=== PATIENT | male | born 1950 | race Caucasian/White ===

== ENCOUNTER 2018-07-25 07:55 | Day surgery (SDC) | payer MEDICARE, SELFPAY ==
--- NOTE | 2018-07-19 10:27 | EKG12_ITS ---
Test Reason : PRE-OP Blood Pressure : / mmHG Vent. Rate : 063 BPM Atrial Rate : 063 BPM P-R Int : 194 ms QRS Dur : 094 ms QT Int : 410 ms P-R-T Axes : 033 051 064 degrees QTc Int : 419 ms Sinus rhythm with Premature atrial complexes Septal infarct , age undetermined Abnormal ECG Confirmed by VIDA SHARMA, ADRIEN ([id number]), web editor MIRANDA SHOEMAKER ([id number]) on 07/20/2018 3:19:58 PM Referred By: Lonny Kuhn Confirmed By:ADRIEN MCPHERSON MD
[2018-07-19 10:58] LABS: Hematocrit 49.3 % (40-54); Hemoglobin 16.8 g/dl (13.0-16.5); Mean Corp Hgb Conc 34.1 g/gl (32-36); Mean Corpuscular Hgb 31.1 pg (27.0-32.0); Mean Corpuscular Volume 91.3 fL (80-94); Mean Platelet Vol. 8.8 fl (6.2-12.0); Platelet Count 174 K/mm3 (150-450); RBC Distribution Width CV 13.3 % (11.6-14.6); RBC Distribution Width SD 44.3 fl (35.1-43.9); White Blood Count 7.8 K/mm3 (4.4-11.0)
[2018-07-19 11:00] LABS: Scan Indicated on CBC? Y/N NO
[2018-07-19 11:23] LABS: Anion Gap 7 (5-15); BUN 23 mg/dL (7-18); Calcium,Total 8.7 mg/dL (8.5-10.1); Chloride 103 mmol/L (98-107); Creatinine, Serum 1.15 mg/dL (0.70-1.30); EST Glomerular Filtration Rate 67 mL/min (>60); Est Glom Filt Rate - Afr Amer 81 mL/min (>60); Glucose 106 mg/dL (74-106); Potassium 3.8 mmol/L (3.5-5.1); Sodium Level 137 mmol/L (136-145)
--- NOTE | 2018-07-25 | LES_PTH ---
PATIENT: MATEUS COLEMAN [place] [facility] [place][id number] AGE/SX: 68/M ROOM: RE07/25/[address]: Dr. Lonny Kuhn MD : 1950 BED: DIS: 07/25/2018 SPEC #: [id number] RECD: 07/25/18 13:04 STATUS: CHALINO MILAD #: [id number] RADHA: 07/25/18 00:[address]: Lonny Kuhn DEPT: SURGICAL PATHOLOGY RECD BY: Karen Rubio ENTERED: 07/25/18 13:58 SP TYPE: Lesion OTHR DR: Dr. Sebas Marion, DO Tissues: A - Skin of face, NOS B - Skin of forehead Procedures: Frozen Section (charge) Frozen Section Add'l ([facility]) Surgery Specimen Level IV Frozen (no charge) HEADER OPERATION: Excision scalp neoplasm x2, frozen section PRE-OP DIAGNOSIS: Lesions forehead x2 TISSUE SUBMITTED: A - Lesion left temporal FS, short suture - superior, long - medial, B - Pigmented lesion right forehead FS, short suture - superior, long - medial FROZEN SECTION DIAGNOSIS A. Lesion left temporal, biopsy: Squamous cell carcinoma in situ, completely excised. B. Right forehead, pigmented lesion, biopsy: Seborrheic keratosis. Negative for malignancy. SJ:pelon 07/25/18 MICROSCOPIC DIAGNOSIS A. Lesion left temporal, biopsy: Squamous cell carcinoma in situ, completely excised. B. Right forehead, pigmented lesion, biopsy: Seborrheic keratosis. Negative for malignancy. ANOOP:pelon 07/26/18 COMMENT Case has been reviewed in consultation with Dr. Seo who concurs with the above diagnosis. IDC:AM MICROSCOPIC DESCRIPTION Slides are reviewed. GROSS DESCRIPTION A - Received fresh for frozen section diagnosis labeled with the patient's name is a specimen designated lesion left temporal. The specimen consists of a piece of soler-white skin ellipse measuring 2 x 1.5 x 0.3 cm. The specimen is oriented as short suture - superior, long suture - lateral. The specimen is inked as follows: medial tip - yellow, lateral tip - green, superior - black, inferior - blue. The specimen is serially sectioned and submitted for frozen section diagnosis in two cassettes as follow: 1 - tip, 2 - rest of the specimen. B - Received fresh for frozen section diagnosis labeled with the patient's name is a specimen designated right forehead pigmented lesion. The specimen consists of a piece of soler-white skin ellipse measuring 1.4 x 0.7 x 0.2 cm. The specimen is oriented as short suture - superior, long suture - medial. The specimen is inked as follows: medial tip - yellow, lateral tip - green, superior - black, inferior - blue. The specimen is serially sectioned and submitted entirely for frozen section diagnosis in one cassette. / SJ:rg 07/25/18 TC:0 CPT: 99454 x2, 65631 x2, 01307
[2018-07-25 09:02] VITALS: BP 137/71; PULSE 61; RESP 16; TEMP 36.8; O2SAT 92; BMI 36.7
--- NOTE | 2018-07-25 12:35 | DCINST_ITS ---
You will use the following diet at home:: Regular Your food should be the consistency of: Regular Discharge Activity: Return to Normal Activity May shower in (days): 2 Additional Activity Instructions:: Remove dressing tomorrow morning. Apply antibiotic ointment twice a day on the stitches. May shower on Wednesday. Allergies/Adverse Reactions: Allergies No Known Allergies Allergy (Verified 07/18/18 14:38) Medications to take at Discharge Aspirin [Aspirin, Baby] 81 mg PO DAILY@0800 01/28/17 RX: Multivitamins,Therapeutic [Multivitamin] 1 tablet PO DAILY 01/28/17 traMADol [Ultram (G)] 50 mg PO BID 01/28/17 Pramipexole Di-HCl [Mirapex] 0.75 mg PO TID 03/15/17 Doxepin HCl [Sinequan] 10 mg PO QHS 07/19/18 Acetaminophen [Tylenol Extra Strength] 500 - 1,000 mg PO Q6H 07/25/18 RX: Memantine HCl 10 mg PO DAILY 07/25/18 Spironolact/Hydrochlorothiazid [Aldactazide 25-25 Tablet] 1 each PO DAILY 07/25/18 Primary Care Physician: Sebas Marion DO [Primary Care Provider] - Test Results: Test results from this visit will be discussed in further detail at your follow- up appointment, if applicable.
[2018-07-25] MEDS: Bacitracin 500 UNITS/GM PACKET (13:10)
[2018-07-25 13:31] VITALS: BP 137/71; BP 163/90; PULSE 70; RESP 16; TEMP 36.8; O2SAT 96
[2018-07-25 13:35] VITALS: BP 137/71; BP 162/93; PULSE 70; RESP 16; O2SAT 96
[2018-07-25 13:40] VITALS: BP 137/71; BP 161/86; PULSE 72; RESP 16; O2SAT 97
[2018-07-25 13:45] VITALS: BP 137/71; BP 152/97; PULSE 70; RESP 16; TEMP 36.9; O2SAT 95
[2018-07-25 13:57] VITALS: BP 137/71
--- NOTE | 2018-07-25 16:22 | PCM.OPRPT ---
Report of Operation Date of Procedure: 07/25/18 Pre-Operative Diagnosis: basal cell carninoma left rastafari. hyperpigmented lesion right forehead Post-Operative Diagnosis: Squamous cell carcinoma left rastafari. Seborrheic keratosis right forehead Surgery/Procedure Performed:: Excision squamous cell carcinoma left rastafari with intermediate repair (2.2x1.1) cm. Excision right forehead lesion with intermediate repair (1x.8)cm Type of Anesthesia:: Local MAC Anesthesiologist: Elliot White Specimen's removed: left rastafari. right forehead Estimated Blood Loss (mL): minimal Description of Procedure: The patient was taken to the OR on 07/25/18. He was placed in the supine position on the OR table. He was given local mac anesthesia. The skin was prepped and draped steriley. I injected 1% lidocaine with epinephrine 1:[id number] into the skin surrounding each lesion. After sufficient anesthesia and vasoconstriction, the left rastafari lesion was excised in an ellipse. Sutures were used to orient the specimen and it was sent for frozen section. Hemostasis was achieved with monopolar cautery. I then irrigated the wound. Frozen section came back with clear margins. Next, I undermined the wound anteriorly and posteriorly with scissors. I then used 4-0 Vicryl for the subcutaneous closure and 6-0 nylon for the skin. Next, the right forehead lesion was addressed. It was excised with a 15 blade and sutures were used to orient the specimen. Hemostasis was achieved with monopolar cautery. Frozen section came back as seborrheic keratosis. Next, I undermined the edges with scissors. I irrigated the incision with saline. The subcutaneous layer was closed with interrupted 4-0 Vicryl and the skin was closed with 6-0 Nylon. Bacitracin was applied to both incisions. Pressure dressings were applied to each incision. The patient was then brought to the recovery room in stable condition. Blood loss minimal, replacement none. Sponge, needle and instrument count were correct at the end of the procedure.
--- NOTE | 2018-07-25 16:34 | OP.PCM_ITS ---
Report of Operation Date of Procedure: 07/25/18 Pre-Operative Diagnosis: basal cell carninoma left taoist. hyperpigmented lesion right forehead Post-Operative Diagnosis: Squamous cell carcinoma left taoist. Seborrheic keratosis right forehead Surgery/Procedure Performed:: Excision squamous cell carcinoma left taoist with intermediate repair (2.2x1.1) cm. Excision right forehead lesion with intermediate repair (1x.8)cm Type of Anesthesia:: Local MAC Anesthesiologist: Elliot White Specimen's removed: left taoist. right forehead Estimated Blood Loss (mL): minimal Description of Procedure: The patient was taken to the OR on 07/25/18. He was placed in the supine position on the OR table. He was given local mac anesthesia. The skin was prepped and draped steriley. I injected 1% lidocaine with epinephrine 1:[id number] into the skin surrounding each lesion. After sufficient anesthesia and vasoconstriction, the left taoist lesion was excised in an ellipse. Sutures were used to orient the specimen and it was sent for frozen section. Hemostasis was achieved with monopolar cautery. I then irrigated the wound. Frozen section came back with clear margins. Next, I undermined the wound anteriorly and posteriorly with scissors. I then used 4-0 Vicryl for the subcutaneous closure and 6-0 nylon for the skin. Next, the right forehead lesion was addressed. It was excised with a 15 blade and sutures were used to orient the specimen. Hemostasis was achieved with monopolar cautery. Frozen section came back as seborrheic keratosis. Next, I undermined the edges with scissors. I irrigated the incision with saline. The subcutaneous layer was closed with interrupted 4-0 Vicryl and the skin was closed with 6-0 Nylon. Bacitracin was applied to both incisions. Pressure dressings were applied to each incision. The patient was then brought to the recovery room in stable condition. Blood loss minimal, replacement none. Sponge, needle and instrument count were correct at the end of the procedure.
== END 2018-07-25 14:00 | disposition home or self-care (01) ==
LOC: SDC 07:55 → AC 07:58
PROVIDERS: Family Provider Family Medicine; PCP Family Medicine; Referring Provider Otolaryngology; Visit Provider Otolaryngology
PROC: (CPT 11644; principal; 2018-07-25 09:45)
DX: D04.39 Carcinoma in situ of skin of other parts of face (principal); L82.1 Other seborrheic keratosis; K58.9 Irritable bowel syndrome, unspecified; Z79.899 Other long term (current) drug therapy; Z79.82 Long term (current) use of aspirin; G20 Parkinson's disease
CPT/HCPCS: 00300; 11644; 12052; 36415; 80048; 85027; 88305; 88331; 88332; 93005; J7120

== ENCOUNTER → 2018-08-02 10:31 | Outpatient (CLI) | payer MEDICARE, SELFPAY ==
[2018-08-02 11:49] LABS: PSA,Total - Annual Screen 2.63 ng/mL (0.00-4.00)
== END ==
PROVIDERS: Family Provider Family Medicine; PCP Family Medicine; Referring Provider Urology; Visit Provider Urology
DX: Z12.5 Encounter for screening for malignant neoplasm of prostate (principal)
CPT/HCPCS: 36415; 84153; G0103

== ENCOUNTER 2018-08-10 08:18 | Emergency (ER) | payer MEDICARE, SELFPAY ==
[2018-08-10 08:19] VITALS: BP 166/90; PULSE 74; RESP 18; TEMP 36.6; O2SAT 95; BMI 36.8
--- NOTE | 2018-08-10 08:31 | CT_ITS ---
STUDY: CT ABDOMEN AND PELVIS WITHOUT CONTRAST REASON FOR EXAM: Male, 68 years old. Right flank pain. History of kidney stones. RADIATION DOSAGE (If Supplied By Facility): CTDIvol = ( 22.27 ) mGy, DLP = ( 1182.54 ) mGycm TECHNIQUE: Transaxial images were obtained from the dome of the diaphragm to the symphysis pubis without oral contrast, and without intravenous contrast. Sagittal and coronal images were reconstructed. Individualized dose optimization techniques were used for this CT. COMPARISON: None. FINDINGS: Minimal degree of increased linear markings at the lung bases suggestive of linear atelectasis and/or scarring. Coronary artery calcification. There is decreased attenuation of the liver consistent with steatosis. Sludge or small gallstones seen along the dependent portion of the gallbladder. Normal spleen. Normal pancreas. Normal bilateral adrenal glands. Right perinephric stranding. There is evidence of right parapelvic cysts. There is also evidence of mild degree of right hydronephrosis and right hydroureter due to a 5.7 mm calculus in the distal portion of the right ureter proximal to the ureterovesical junction. There is also evidence of a 4.8 mm calculus at the right ureterovesical junction. Left parapelvic cysts. Nonobstructive left intrarenal calculi. The largest measures 6.5 mm. There is also evidence of a cortical cyst in the lower pole of the left kidney. Normal visualized stomach. Normal small intestine. There are multiple colonic diverticula consistent with diverticulosis. The appendix is visualized and appears normal. There is diffuse atherosclerotic calcification of the abdominal aorta, without a demonstrated aneurysm. Normal inferior vena cava. Normal retroperitoneum. The bladder is empty. Bladder wall thickening. There is enlargement of the prostate gland. It measures 4.9 cm x 5.7 cm. Central calcifications are seen. There is a small umbilical hernia containing fat. There are diffuse degenerative changes of the visualized lumbar spine. Straightening of the normal lumbar lordosis. CT/Abdomen/Pelvis without Cont IMPRESSION: Obstructive calculi seen in the distal right ureter as well as in the right ureteral vesicle junction as described. Bilateral parapelvic cysts and cortical cysts. Nonobstructive left intrarenal calculi. Fatty infiltration of the liver. Sludge or tiny gallstones within the gallbladder lumen. Electronically Signed: Efra Henry MD at 9:08 EDT Tel [phone], Service support ,
--- NOTE | 2018-08-10 08:34 | ED.VISSUMM ---
- ER Visit Summary Date of Service: 08/10/18 Chief Complaint: Right flank pain History of Present Illness: The patient is a 68 M history of prior kidney stones, Parkinson's disease, mild dementia and prior back surgery. Patient awoke this morning with not because of right flank pain. He denies any dysuria, hematuria or fever. He denies any vomiting or diarrhea. Denies any trauma. Similar to his prior kidney stone pain. Physical Examination: Older male no acute distress. Vital signs are stable and afebrile. H EENT exam unremarkable. Neck nontender. Lungs clear to auscultation bilaterally. Heart regular rhythm rate about 70. No murmur. Abdomen is soft. Nondistended. Normal bowel sounds. No peritoneal signs. Patient is moving all 4 extremities. They are neurovascularly intact. Normal motor strength and sensation in both lower extremities. No edema. Back exam nontender. No CVA tenderness. He is a well-healed prior lumbar surgical scar. Neurologically is awake and alert with no focal motor deficits. Test Results: UA shows blood on the macroscopic portion but negative whites or reds, nitrates or bacteria on the microscopic. CT flank shows distal millimeter ureteral stone and also a 4.8 mm stone at the right UVJ. There is hydroureter and hydronephrosis. There is also bilateral renal stones. And gallbladder sludge. Chemistry panel shows an anion gap of 9 and creatinine 1.49. Emergency Department Course and Treatment: Patient will receive IV morphine and Zofran. We will do screening labs and a CT flank study. On repeat exam at mt 9:19 AM patient is doing well. I went over all test results with both he and her family member. They are comfortable with him being discharged home. Treatment Plan: Touchet for pain. Flomax. Call and follow-up with Dr. Leahy of urology. Disposition: Discharge Impression: Acute right flank pain secondary to 2 distal ureteral calculi of 5.7 and 4.8 mm. Acute renal insufficiency This note was generated with [employer] dictation software. It may contain incorrect words, spelling, and punctuation that were not noted in review of the chart prior to signing ED Disposition - Plan for ED Patient: Disposition: Home or Assisted Living Chief Complaint: Flank Pain Instructions: ED Stone Renal W Colic Prescriptions: Hydrocodone/Acetaminophen [Touchet 7.5-325 Tablet] 1 ea PO Q4H PRN PRN #20 tab PRN Reason: Pain Tamsulosin HCl [Flomax] 0.4 mg PO DAILY #5 cap Referrals: Markie Leahy MD [STAFF PHYSICIAN] - As soon as possible Additional Instructions: Plenty of water and rest. Strain urine for passage of stones. Touchet for pain. Return if fever, feeling worse, intractable pain or intractable vomiting. Call and follow-up with Dr. Leahy soon as possible.
[2018-08-10 08:36] LABS: Bacteria 0 SEEN /hpf (None Seen); Mucous, Urine 0 SEEN /hpf (<or=2+); Red Blood Cells-Urine 0 SEEN /hpf (0-5); Squamous Epithelial Cells - UA 0 SEEN /hpf (0-5); White Blood Cells 0 SEEN /hpf (0-5)
[2018-08-10 08:37] LABS: Color, Urine Yellow (Yellow); Glucose, Dipstick Normal (Normal); Ketone-Dipstick Negative (Negative); Leukocyte Esterase-Dipstick Negative /ul (Negative); Nitrite-Dipstick Negative (Negative); Occult Blood-Urine 25 /ul (Negative); Protein-Dipstick Negative (Negative); Specific Gravity, Urine 1.015 (1.002-1.030); Urine Bilirubin Dipstick Negative (Negative); Urine Clarity Clear (Clear); Urine Urobilinogen Normal (Normal)
[2018-08-10] MEDS: morphine 8 MG/ML Syringe 6 MG IV (08:45)
[2018-08-10] MEDS: Ondansetron 4 MG/2 ML Vial IV (08:45)
[2018-08-10 08:56] LABS: Anion Gap 9 (5-15); BUN 21 mg/dL (7-18); BUN/Creat Ratio 14.1 RATIO (10-20); Calcium,Total 8.9 mg/dL (8.5-10.1); Chloride 100 mmol/L (98-107); Creatinine, Serum 1.49 mg/dL (0.70-1.30); EST Glomerular Filtration Rate 50 mL/min (>60); Est Glom Filt Rate - Afr Amer 60 mL/min (>60); Estimated Creatinine Clearance 45.91 ml/min; Glucose 128 mg/dL (74-106); Potassium 4.1 mmol/L (3.5-5.1); Sodium Level 137 mmol/L (136-145)
--- NOTE | 2018-08-10 09:23 | ED.DEP ---
ED Disposition - Plan for ED Patient: Disposition: Home or Assisted Living Chief Complaint: Flank Pain Instructions: ED Stone Renal W Colic Prescriptions: Hydrocodone/Acetaminophen [[place] 7.5-325 Tablet] 1 ea PO Q4H PRN PRN #20 tab PRN Reason: Pain Tamsulosin HCl [Flomax] 0.4 mg PO DAILY #5 cap Referrals: Markie Leahy MD [STAFF PHYSICIAN] - As soon as possible Additional Instructions: Plenty of water and rest. Strain urine for passage of stones. [place] for pain. Return if fever, feeling worse, intractable pain or intractable vomiting. Call and follow-up with Dr. Leahy soon as possible.
--- NOTE | 2018-08-10 09:27 | DCINST.ED_ITS ---
ED Disposition - Plan for ED Patient: Disposition: Home or Assisted Living Chief Complaint: Flank Pain Instructions: ED Stone Renal W Colic Prescriptions: Hydrocodone/Acetaminophen [[place] 7.5-325 Tablet] 1 ea PO Q4H PRN PRN #20 tab PRN Reason: Pain Tamsulosin HCl [Flomax] 0.4 mg PO DAILY #5 cap Referrals: Markie Leahy MD [STAFF PHYSICIAN] - As soon as possible Additional Instructions: Plenty of water and rest. Strain urine for passage of stones. [place] for pain. Return if fever, feeling worse, intractable pain or intractable vomiting. Call and follow-up with Dr. Leahy soon as possible.
[2018-08-10 09:36] VITALS: BP 134/72; PULSE 68; RESP 15; O2SAT 97
== END 2018-08-10 09:38 | disposition home or self-care (01) ==
PROVIDERS: Emergency Provider Emergency Medicine; Family Provider Family Medicine; PCP Family Medicine
DX: N13.2 Hydronephrosis with renal and ureteral calculous obstruction (principal); N28.9 Disorder of kidney and ureter, unspecified; G20 Parkinson's disease; F03.90 Unspecified dementia, unspecified severity, without behavioral disturbance, psychotic disturbance, mood disturbance, and anxiety; Z87.442 Personal history of urinary calculi; Z79.82 Long term (current) use of aspirin; Z79.899 Other long term (current) drug therapy
CPT/HCPCS: 74176; 80048; 81001; 96374; 96375; 99284; A4216; J2405

== ENCOUNTER → 2018-09-13 11:08 | Outpatient (CLI) | payer MEDICARE, SELFPAY ==
--- NOTE | 2018-09-13 11:11 | NM_ITS ---
CLINICAL: 68-year-old male with reported history of chronic nausea. RADIONUCLIDE HEPATOBILIARY SCINTIGRAPHY COMPARISON: CT of the abdomen-pelvis report 08/10/2018 FINDINGS: Following the intravenous administration of 5.7 mCi of 99m Tc Mebrofenin, hepatobiliary images reveal:. 1. Relatively prompt and homogeneous radiopharmaceutical concentration is noted by a normal sized liver. No parenchymal defects are identified. 2. Gallbladder activity is identified at 30 minutes post radiopharmaceutical administration. 3. Small intestinal tract is observed at 15 minutes following tracer injection. 4. Washout of the radiopharmaceutical by the hepatic parenchyma appears qualitatively normal. The patient was administered a fatty meal (8 ounces Boost). The post fatty meal ingestion gallbladder ejection fraction calculated at 29 minutes was noted to be 23.0 % (normal greater than 30%). There is refilling of the gallbladder noted during the remaining 30 minutes of image acquisition. NM/Hepatobilliary Img w/Pharm Int IMPRESSION: 1. ABNORMAL 99m Tc Mebrofenin hepatobiliary imaging examination with fatty meal ingestion. A. A gallbladder ejection fraction calculated to be less than 30% following the administration of an ingested fatty meal is consistent with the presence of functional hepatobiliary disease (gallbladder dyskinesia) and/or organic hepatobiliary disease (chronic acalculous cholecystitis and/or cystic duct syndrome) in patients with intermediate to high pretest probabilities of hepatobiliary illness. (James and Nitin, J Nucl Med 43: 1603, 2002). B. Refilling of the gallbladder following fatty meal consumption may represent the presence of Sphincter of Oddi dysfunction. Correlation with Sphincter of Oddi manometry may be indicated. (James and James, J Nucl Med 38:1824, 1997). Electronically Signed: Amando Narvaez DO at 23:47 EST Tel , Service support ,
== END ==
PROVIDERS: Family Provider Family Medicine; PCP Family Medicine; Referring Provider Family Medicine; Visit Provider Family Medicine
DX: K82.8 Other specified diseases of gallbladder (principal)
CPT/HCPCS: 78227; A9537

== ENCOUNTER 2018-09-30 06:36 | Day surgery (SDC) | payer MEDICARE, SELFPAY ==
[2018-09-21 09:55] VITALS: BMI 36.8
[2018-09-30] VITALS (7 sets, daily range): BP systolic 120–138; BP diastolic 74–86; PULSE 60–70; RESP 16–18; TEMP 36.8–37.5; O2SAT 93–96; BMI 35.7
--- NOTE | 2018-09-30 07:57 | OP.ENDO_ITS ---
Patient Name: Jerry Agrawal Procedure Date: 09/30/2018 7:29 AM Date of : 1950 Age: 68 Procedure: Colonoscopy Indications: Screening for colorectal malignant neoplasm Providers: Mingo Blanc MD Referring MD: Sebas Marion Medicines: Monitored Anesthesia Care Patient Profile: This is a 68 year old male. Refer to note in patient chart for documentation of history and physical. Last Colonoscopy: more than 10 years ago. Complications: No immediate complications. Procedure: Pre-Anesthesia Assessment: - Prior to the procedure, a History and Physical was performed, and patient medications and allergies were reviewed. The patient's tolerance of previous anesthesia was also reviewed. The risks and benefits of the procedure and the sedation options and risks were discussed with the patient. All questions were answered, and informed consent was obtained. Prior Anticoagulants: The patient has taken no previous anticoagulant or antiplatelet agents. After reviewing the risks and benefits, the patient was deemed in satisfactory condition to undergo the procedure. After I obtained informed consent, the scope was passed under direct vision. Throughout the procedure, the patient's blood pressure, pulse, and oxygen saturations were monitored continuously. The pediatric colonoscope was introduced through the anus and advanced to the cecum, identified by appendiceal orifice and ileocecal valve. The colonoscopy was performed without difficulty. The patient tolerated the procedure well. The quality of the bowel preparation was good. Scope In: 7:38:31 AM Scope Withdrawal Time 0 hours 7 minutes 10 seconds Scope Out: 7:53:09 AM Total Procedure Duration Time 0 hours 14 minutes 38 seconds Findings: Multiple small and large-mouthed diverticula were found in the sigmoid colon. There was no evidence of diverticular bleeding. Internal hemorrhoids were found during retroflexion. The hemorrhoids were Grade I (internal hemorrhoids that do not prolapse). The exam was otherwise without abnormality on direct and retroflexion views. Impression: - Diverticulosis in the sigmoid colon. There was no evidence of diverticular bleeding. - Internal hemorrhoids. - The examination was otherwise normal on direct and retroflexion views. - No specimens collected. Recommendation: - Discharge patient to home. - Resume previous diet. - Continue present medications. - Repeat colonoscopy is not recommended due to current age (66 years or older) for screening purposes. Procedure Code(s): --- Professional --- G0121, Colorectal cancer screening; colonoscopy on individual not meeting criteria for high risk Diagnosis Code(s): --- Professional --- Z12.11, Encounter for screening for malignant neoplasm of colon K64.0, First degree hemorrhoids K57.30, Diverticulosis of large intestine without perforation or abscess without bleeding CPT copyright 2017 [employer]. All rights reserved. The codes documented in this report are preliminary and upon court officer review may be revised to meet current compliance requirements. Mingo Blanc MD 09/30/2018 7:57:02 AM This report has been signed electronically. Number of Addenda: 0 Note Initiated On: 09/30/2018 7:29 AM
== END 2018-09-30 08:46 | disposition home or self-care (01) ==
LOC: EN 06:37 → AC 06:38
PROVIDERS: Family Provider Family Medicine; PCP Family Medicine; Referring Provider Surgery; Visit Provider Surgery
PROC: 0DJD8ZZ Inspection of Lower Intestinal Tract, Via Natural or Artificial Opening Endoscopic (ICD-10-PCS; CPT 45378; principal; 2018-09-30 07:55)
DX: Z12.11 Encounter for screening for malignant neoplasm of colon (principal); K57.30 Diverticulosis of large intestine without perforation or abscess without bleeding; K64.0 First degree hemorrhoids; K82.8 Other specified diseases of gallbladder; G30.9 Alzheimer's disease, unspecified; F02.80 Dementia in other diseases classified elsewhere, unspecified severity, without behavioral disturbance, psychotic disturbance, mood disturbance, and anxiety; G20 Parkinson's disease; K58.9 Irritable bowel syndrome, unspecified; M19.90 Unspecified osteoarthritis, unspecified site; F41.9 Anxiety disorder, unspecified; F32.9 Major depressive disorder, single episode, unspecified; Z85.828 Personal history of other malignant neoplasm of skin; Z87.442 Personal history of urinary calculi; Z79.899 Other long term (current) drug therapy; Z87.891 Personal history of nicotine dependence
CPT/HCPCS: G0121; J7120

== ENCOUNTER 2018-10-06 07:22 | Day surgery (SDC) | payer MEDICARE, SELFPAY ==
[2018-09-21 09:55] VITALS: BMI 36.8
[2018-09-30 07:07] VITALS: BMI 35.7
[2018-10-06] VITALS (10 sets, daily range): BP systolic 112–183; BP diastolic 67–109; PULSE 61–84; RESP 16–18; TEMP 35.8–36.8; O2SAT 92–98; BMI 35.1
--- NOTE | 2018-10-06 09:35 | GALL_PTH ---
PATIENT: MATEUS COLEMAN LOC: [facility] – [place] U#:[id number] AGE/SX: 68/M ROOM: RE10/06/[address]: Dr. Mingo Blanc MD : 1950 BED: DIS: 10/06/2018 SPEC #: [id number] RECD: 10/06/18 12:26 STATUS: CHALINO MILAD #: [id number] RADHA: 10/06/18 09:[address]: Mingo Blanc DEPT: SURGICAL PATHOLOGY RECD BY: Amando Carrillo ENTERED: 10/06/18 12:54 SP TYPE: ROLANDA CONNOLLY DR: Dr. Sebas Marion, DO Tissues: Gallbladder, NOS Procedures: Surgery Specimen Level III HEADER OPERATION: Laparoscopic cholecystectomy with IOC PRE-OP DIAGNOSIS: Biliary dyskinesia TISSUE SUBMITTED: Gallbladder MICROSCOPIC DIAGNOSIS Gallbladder, cholecystectomy: Chronic cholecystitis and cholelithiasis. Benign pericystic lymph node. AM:pelon 10/07/18 MICROSCOPIC DESCRIPTION Slides are reviewed. GROSS DESCRIPTION Received is one container labeled with the patient's name and designated gallbladder. The specimen consists of a gallbladder measuring 8.5 x 3 x 1 cm. The external surface is smooth and glistening. Focally, it is granular, hemorrhagic and contains cautery artifact. The lumen of the gallbladder contains yellow mucoid bile and multiple black stones averaging 0.2 cm in greatest dimension. The mucosa is bile-stained and without any mass lesions. The gallbladder wall averages 0.2 cm in thickness and is free of mass lesions. Impregnating Machine Operator sections of the gallbladder and the cystic duct are submitted in one cassette. / AM:pelon 10/06/18 TC:3 CPT: 72118
--- NOTE | 2018-10-06 09:35 | RAD_ITS ---
PROCEDURE: INTRAOPERATIVE CHOLANGIOGRAM. REASON FOR EXAM: Male, 68 years old. Sludge versus stones in gallbladder. Abnormal gallbladder ejection fraction. FLUOROSCOPY TIME (if supplied): (0:10) minutes/seconds TECHNIQUE: Real-time fluoroscopy was provided during intraoperative contrast infusion via the cystic duct. A 57 frame for scalp cine run is submitted. COMPARISON: CT abdomen and pelvis August 10, 2018; hepatobiliary scan September 13, 2018. FINDINGS: Normal caliber intra-and extrahepatic bile ducts. No filling defects or strictures seen. Contrast flows to the duodenum. RAD/Cholangiogram/ O R,Initial IMPRESSION: Normal intraoperative cholangiogram. Electronically Signed: Marco Willson MD at 20:01 EST , Service support ,
--- NOTE | 2018-10-06 10:48 | PCM.OPRPT ---
Problem List (1) Cholelithiasis Status: Acute Qualifiers: Cholelithiasis location: gallbladder Cholecystitis presence: without cholecystitis Biliary obstruction: without biliary obstruction Qualified Code(s): K80.20 - Calculus of gallbladder without cholecystitis without obstruction (2) Biliary dyskinesia Status: Acute Report of Operation Date of Procedure: 10/06/18 Pre-Operative Diagnosis: Biliary dyskinesia and sludge Post-Operative Diagnosis: Cholelithiasis and biliary colic Surgery/Procedure Performed:: Laparoscopic Cholecystectomy with cholangiogram Type of Anesthesia:: General Specimen's removed: Gallbladder and contents Description of Procedure: After obtaining informed consent patient was brought back to the operating room. General anesthesia was induced. The abdomen was prepped and draped in usual sterile fashion. A small midline incision was made superior to the umbilicus and deepened to the level of fascia. The fascia was elevated and incised. Next the peritoneum was elevated and incised in the same fashion. Finger sweep was performed and the Charles trocar was placed into the abdomen. The balloon was inflated. The abdomen was inflated to 15 mmHg. Next a camera was introduced into the abdomen and the abdomen was inspected. Next under direct visualization three 5-mm ports were placed one subxiphoid and 2 subcostal. Next the gallbladder was elevated and retracted toward the right shoulder. The peritoneum was stripped from the gallbladder. The infundibulum was located and retracted laterally. Next the triangle of Calot was dissected and the cystic duct and cystic artery were identified. Cholangiograms were performed. The Martinez clamp was used to clamp across the infundibulum and the catheter needle was inserted into the gallbladder. Under fluoroscopy contrast was instilled into the gallbladder and the common duct, cystic duct as well as proximal hepatic ducts were identified. There was good filling of the duodenum. There were no filling defects noted in the common bile duct. The clamp was removed as well as the needle and the infundibulum was grasped once more. Three hemolock clips were placed across the cystic duct. The cystic duct was then divided leaving 2 clips on the stump. The cystic artery was clipped and divided in the same fashion. The hook cautery was then used to take the gallbladder off of the gallbladder bed. Hemostasis was obtained. Gallbladder fossa was irrigated and no active bleeding or bile leakage was noted. Next the camera switched to a 5 mm camera and introduced in the subxiphoid port. An Lumeta bag was placed through the umbilical port and the gallbladder was placed into it. The gallbladder was then removed through the umbilical incision. The camera was then reinserted through the umbilical port. The gallbladder fossa was inspected once more and noted to be hemostatic with no leaking bile. The abdomen was suctioned dry. The 5 mm ports were removed under direct visualization. The umbilical port was then removed and the air was removed from the abdomen. Next using an 0 Vicryl suture the umbilical fascia was closed in a [id number] fashion. The umbilical port site was irrigated local anesthetic was administered to all the incisions. All the incisions were closed with interrupted subcuticular 4-0 Monocryl sutures followed by Steri-Strips and dressings. The patient was awoken and taken to PACU in stable condition. - Admit VTE Documentation VTE Mechan Device Prophylaxis: SCD's
[2018-10-06] MEDS: Bupiv/Epi 0.5% Mpf 30 ML Vial (10:50)
--- NOTE | 2018-10-06 10:51 | DCINST_ITS ---
Discharge Diet: Light diet - advance as tolerated Discharge Activity: Return to Normal Activity, May Not Drive - for 2-3 days or while taking narcotic pain medicataions., - - Do not drive, work heavy equipment or sign legal documents for 24 hours. May shower in (days): 1 - with the bandage in place. Lifting Restrictions: 20 lbs for 2 weeks Additional Activity Instructions:: Pain medication may cause nausea. You should typically eat light foods as you take your pain medications. Pain medication may also cause constipation. If this is a problem for you, please discuss with your doctor. Call your doctor if your incision/area has: Continuous Slow Oozing, Sudden Increased Bleeding, Increased Pain/ Swelling, Increased Redness, Foul Smelling Discharge, Fever of 101 or Higher Call your doctor if you observe: Fever of 101 or Higher Suture Line Care: Avoid Pulling/Pushing, Avoid Pinching/Bending Additional Dressing/Incision Instructions:: Leave operative bandaids on for 2 days. When you remove dressing, leave Steri-Strips on until your follow-up appointment, or until the Steri-Strips fall off on their own. Allergies/Adverse Reactions: Allergies No Known Allergies Allergy (Verified 09/28/18 09:54) Medications to take at Discharge Multivitamins,Therapeutic [Multivitamin] 1 tablet PO DAILY 01/28/17 traMADol [Ultram (G)] 50 mg PO BID 01/28/17 Pramipexole Di-HCl [Mirapex] 1 mg PO TID 03/15/17 Doxepin HCl [Sinequan] 10 mg PO QHS 07/19/18 Acetaminophen [Tylenol Extra Strength] 500 - 1,000 mg PO Q6H 07/25/18 Memantine HCl 10 mg PO DAILY 07/25/18 Spironolact/Hydrochlorothiazid [Aldactazide 25-25 Tablet] 1 each PO DAILY 07/25/18 Primary Care Physician: Sebas Marion DO [Primary Care Provider] - Test Results: Test results from this visit will be discussed in further detail at your follow- up appointment, if applicable. Please Follow Up With: Mingo Blanc MD When: Please call to schedule 2 week follow up appointment. [phone]
== END 2018-10-06 14:01 | disposition home or self-care (01) ==
LOC: SDC 07:23 → AC 07:25
PROVIDERS: Family Provider Family Medicine; PCP Family Medicine; Referring Provider Surgery; Visit Provider Surgery
PROC: (CPT 47610; principal; 2018-10-06 09:15)
DX: K80.12 Calculus of gallbladder with acute and chronic cholecystitis without obstruction (principal); F32.9 Major depressive disorder, single episode, unspecified; Z85.828 Personal history of other malignant neoplasm of skin; K58.9 Irritable bowel syndrome, unspecified; Z79.899 Other long term (current) drug therapy; I10 Essential (primary) hypertension; G20 Parkinson's disease; G89.29 Other chronic pain; G30.9 Alzheimer's disease, unspecified; F02.80 Dementia in other diseases classified elsewhere, unspecified severity, without behavioral disturbance, psychotic disturbance, mood disturbance, and anxiety; Z87.891 Personal history of nicotine dependence
CPT/HCPCS: 47563; 74300; 76000; 88304; J7120; A4216; J2405

== ENCOUNTER → 2019-01-09 14:50 | Outpatient (CLI) | payer MEDICARE, SELFPAY ==
[2018-10-06 07:57] VITALS: BMI 35.1
--- NOTE | 2019-01-09 14:54 | CT_ITS ---
STUDY: CT ABDOMEN AND PELVIS WITHOUT CONTRAST REASON FOR EXAM: Male, 68 years old. Right flank pain. Bilateral hip pain. RADIATION DOSAGE (If Supplied By Facility): CTDIvol = ( 29.73 ) mGy, DLP = ( 1466.75 ) mGycm TECHNIQUE: Transaxial images were obtained from the dome of the diaphragm to the symphysis pubis without oral contrast, and without intravenous contrast. Sagittal and coronal images were reconstructed. Individualized dose optimization techniques were used for this CT. COMPARISON: Comparison is made with prior study dated August 10, 2018. FINDINGS: The visualized lung bases are unremarkable. Coronary artery calcification. There is decreased attenuation of the liver consistent with steatosis. There are surgical clips in the gallbladder fossa consistent with a prior cholecystectomy. Normal spleen. Normal pancreas. Normal bilateral adrenal glands. The previously seen right perinephric stranding as improved. Stable appearance of the right parapelvic cysts. The previously seen distal right ureteral calculus is not present at this time. Stable left parapelvic cysts as well as cortical renal cysts on the left side. Stable nonobstructive intrarenal calculi in the upper pole of the left kidney. The largest measures 6.5 mm. Normal visualized stomach. Normal small intestine. There are multiple colonic diverticula consistent with diverticulosis. The appendix is visualized and appears normal. There is diffuse atherosclerotic calcification of the abdominal aorta, without a demonstrated aneurysm. Normal inferior vena cava. Normal retroperitoneum. Normal urinary bladder. There are prostatic calcifications. Prostatic enlargement causing indentation of the bladder base. The prostate measures 5 cm x 5.4 cm. There is a small umbilical hernia containing fat. There are diffuse degenerative changes of the visualized lumbar spine. CT/Abdomen/Pelvis without Cont IMPRESSION: Stable bilateral parapelvic cysts and left cortical renal cysts. There is no evidence of a ureteral obstruction at this time. Stable nonobstructive left intrarenal calculi. The patient is status post cholecystectomy. Electronically Signed: Efra Henry, at 15:34 EDT , Service support ,
[2019-01-09 17:41] LABS: Anion Gap 6 (5-15); BUN 18 mg/dL (7-18); Calcium,Total 8.5 mg/dL (8.5-10.1); Chloride 103 mmol/L (98-107); EST Glomerular Filtration Rate 79 mL/min (>60); Est Glom Filt Rate - Afr Amer 95 mL/min (>60); Glucose 98 mg/dL (74-106); Potassium 3.6 mmol/L (3.5-5.1); Sodium Level 136 mmol/L (136-145)
== END ==
PROVIDERS: Family Provider Family Medicine; PCP Family Medicine; Referring Provider Urology; Visit Provider Urology
DX: N20.0 Calculus of kidney (principal); N40.0 Benign prostatic hyperplasia without lower urinary tract symptoms
CPT/HCPCS: 36415; 74176; 80048